=== PATIENT | female | born 1940 | race Two or more races ===

== ENCOUNTER 2017-10-13 06:26 | Emergency (ER) | payer OTHER ==
[~2017-10-13] VITALS: Ht 154.9 cm; Wt 108.9 kg
[2017-10-13] MEDS ORDERED: AMLODIPINE BESY10 MG (06:38)
[2017-10-13] MEDS ORDERED: FORTAMET1000 MG (06:38)
[2017-10-13] MEDS ORDERED: ELIQUIS5 MG (06:38)
[2017-10-13] MEDS ORDERED: TOPROL XL25 M1 (06:39)
[2017-10-13] MEDS ORDERED: PROTONIX40 M1 (06:39)
== END 2017-10-13 14:04 | disposition home or self-care (01) ==
LOC: ER 06:26
DX: S90.122A Contusion of left lesser toe(s) without damage to nail, initial encounter (principal); W22.8XXA Striking against or struck by other objects, initial encounter; Y93.89 Activity, other specified; Y92.018 Other place in single-family (private) house as the place of occurrence of the external cause; Y99.8 Other external cause status

== ENCOUNTER 2017-10-20 10:30 | Emergency (ER) | payer OTHER ==
[~2017-10-20] VITALS: Ht 167.6 cm; Wt 108.9 kg
[~2017-10-20 10:30] MED LIST: AMLODIPINE BESY10 MG; ELIQUIS5 MG; FORTAMET1000 MG; PROTONIX40 M1; TOPROL XL25 M1
== END 2017-10-20 13:52 | disposition home or self-care (01) ==
LOC: ER 10:30
DX: G89.11 Acute pain due to trauma (principal); M54.5 Low back pain

== ENCOUNTER 2018-01-31 02:12 | Emergency (ER) | payer OTHER ==
[~2018-01-31] VITALS: Ht 165.1 cm; Wt 108.9 kg
[2018-01-31] MEDS ORDERED: JANUMET 50-1,01 EACH (02:35)
[2018-01-31] MEDS ORDERED: ESCITALOPRAM OX10 MG (02:35)
[2018-01-31] MEDS ORDERED: PRAVASTATIN SOD20 MG (02:35)
[2018-01-31] MEDS ORDERED: IRBESARTAN-HCT1 EAC1 (02:36)
== END 2018-01-31 09:59 | disposition home or self-care (01) ==
LOC: ER 02:12
DX: N20.1 Calculus of ureter (principal); R10.31 Right lower quadrant pain

== ENCOUNTER 2018-02-19 17:22 | Inpatient (IN) | payer OTHER ==
[~2018-02-19] VITALS: Ht 104.1 cm; Wt 108.9 kg
[~2018-02-19 17:22] MED LIST changes: +ESCITALOPRAM OX10 MG; +IRBESARTAN-HCT1 EAC1; +JANUMET 50-1,01 EACH; +PRAVASTATIN SOD20 MG
--- NOTE | 2018-02-19 17:27 | NUR ---
SE RECIBE FEMINA ALERTA Y ORIENTADA POR SUSAN ESFERAS, EN AMBULANCIA. REFIERE QUE PRESENTA DOLOR DE PECHO INERMITENTE DESDE ANOCHE. PACIENTE DE DR. LEVY.
--- NOTE | 2018-02-19 17:59 | NUR ---
SE RECIBE PTE ALERTA Y ORIENTADA EN 3 ESFERAS.SETOMAN MUESTRAS DE LINN BAJO MEDIDAS ASEPTICAS. SE ORIENTA A PTE SOBRE TRATAMIENTO EL CUAL REFIERE ENTENDER.
--- NOTE | 2018-02-19 21:07 | NUR ---
SE RECIBE PTE ALERTA Y ORIENTADA X3 EN TWYLA #2. PTE SE CONECTA A MONITOR CARDIACO CON OXIMETRIA DE PULSO CONTINUA. PTE SE OBSERVA CON ALTMAN BAJANDO A GRAVEDAD Y VT MASK AL 50%. PTE SE ORIENTA SOBRE PROTOCOLOS DEL AREA Y ESTA REFIERE ENTENDER. SE MIDEN S/V Y SEDOCUMENTAN LOS MISMOS. PTE SE OBSERVA CON DRIP DE TRIDIL BAJANDO A 6ML/HR. PTE CON H/L X2 LOS CUALES SE ENCUENTRAN PATENTE LIBRES DE EDEMA Y ENROJECIMIENTO. PTE SE CONTINUA MONITORIANDO POR CAMBIOS EN SNEED CONDICION. PTE SE ENCUENTRA EN ESPERA DE CONSULTA CON MEDICINA INTERNA.
--- NOTE | 2018-02-19 23:54 | NUR ---
SE RECIBE PACIENTE ALERTA Y ORIENTADA EN CAMA CON BARRANDAS ELEVADAS POR SNEED SEGUIRDAD. CONECTADA A MONITOR CARDIACO Y OXIMETRIA DE PULSO. PACIENTE CON VENTURY MASK AL 50%. CON SONADA URINARIA DRENANDO ORINA AMARILLO SHEELA. SE ANNE SIGNOS VITALES A PACIENTE AL MOMENTO ESTABLES. PACIENTE CON VENOPUCNION PATENTE DEACON DE ELIZABETH AY ERRITEMA CON TRIDIL 50 MG/250 ML BAJANDO A 2 ML/HR. PACIENTE EN ESPERA DE CUNSULTA CON EL DR. JUAN JOSE BURROUGHS. SE REBECCA A PACIENTE EN CAMA BAJO OBSERVACION POR CAMBIOS EN SNEED CONDICION.
--- NOTE | 2018-02-20 06:41 | NUR ---
PACIENTE ALERTA Y ORIENTADA EN CAMA CON BARANDAS ELEVADAS POR SNEED SEGURIDAD, SE LE ANNE SIGNOS VITLAES ESTABLES AL MOEMENTO Y SE REALIZA I Y O Y SE REPORTA. SE LE JERRY COMODIDAD A PACIENTE , SE REBECCA A PACIENTE EN CAMA CONECTADO A MONITOR CARDIACO Y OXIMETRIA DE PULSO BAJO OBSERVACION POR CAMBIOS EN SNEED CONDICION.
--- NOTE | 2018-02-20 07:08 | NUR ---
SE RECIBE PTE ALERTA Y ORIENTADA EN TIEMPO LUGAR Y PERSONA. DEACON DE DOLOR Y S/V ESTABLES. CONECTADA A VENTURY MASK AL 50% O2, MONITOR CARDIACO CON RITMO SINOSAL NORMAL, CUFF DE PRESION, OXIMETRO DE PULSO Y SONDA URINARIA PATENTE CON OUT PUT AMARILLO SHEELA. CANALIZADA PERIFERALMENTE CON ANGIO #18 BAJANDO TRIDIL @2ML/HR Y SALINE LOCK ANGIO #18 PATENTE. S/V BP:125/59, P-63, S-99%, T-97.3 Y DXT 103MG/DL. SE REBECCA PTE COMODA EN CAMA BAJA CON BARANDAS ELEVADAS Y SE EVALUA POR CAMBIOS.
--- NOTE | 2018-02-20 10:20 | NUR ---
9:00 am PTE INGIERE DIETA DIABETICA Y BAJO NASREEN Y TOLERA LA MISMA. SE JERRY DANIEL EN CAMA. SE REBECCA PTE EN CAMA BAJA CON BARANDAS ELEVADAS. PTE SIN CAMBIOS SIGNIFICATIVOS. SE EVALUA PTE POR CAMBIOS.
--- NOTE | 2018-02-20 10:22 | NUR ---
PTE ES EVALUADA POR DR. JUAN JOSE BURROUGHS.
== END 2018-02-26 13:29 | disposition home or self-care (01) | DRG 280 ==
LOC: ER 17:22 → MEDJ 02-20 11:48 → ICU-2 02-20 11:48 → MEDJ 02-23 11:45
PROVIDERS: ADMIT Internal Medicine
PROC: 4A033R1 Measurement of Arterial Saturation, Peripheral, Percutaneous Approach (ICD-10-PCS; principal; 2018-02-20)
PROC: B246ZZZ Ultrasonography of Right and Left Heart (ICD-10-PCS; 2018-02-21)
PROC: B54DZZZ Ultrasonography of Bilateral Lower Extremity Veins (ICD-10-PCS; 2018-02-22)
PROC: 4A12X4Z Monitoring of Cardiac Electrical Activity, External Approach (ICD-10-PCS; 2018-02-23)
DX: I21.4 Non-ST elevation (NSTEMI) myocardial infarction (principal); I50.23 Acute on chronic systolic (congestive) heart failure; N39.0 Urinary tract infection, site not specified; I11.0 Hypertensive heart disease with heart failure; I48.0 Paroxysmal atrial fibrillation; D64.89 Other specified anemias; R09.02 Hypoxemia; E78.49 Other hyperlipidemia